=== PATIENT | male | born 1985 ===

== ENCOUNTER 2017-10-16 13:13 | Emergency (ER) | payer SELFPAY ==
[2017-10-16 13:23] VITALS: TEMP 98.7
[2017-10-16] MEDS ORDERED: Sodium Chloride 0.9% 1,000 ML IV ONE (13:25)
[2017-10-16] MEDS ORDERED: Sodium Chloride 0.9% 1,000 ML ONE (13:33)
[2017-10-16 13:39] LABS: BASO # 0.1 K/uL (0.0-0.2); BASO % 0.4 % (0.0-2.0); EOS # 0.1 K/uL (0.0-0.7); EOS % 0.9 % (0.0-4.0); HEMOGLOBIN 14.9 g/dL (12.0-18.0); LYMPH # 1.1 K/uL (1.0-4.3); LYMPH % 7.9 % (20.0-40.0); MEAN CELL VOLUME 86.4 fL (80.0-94.0); MEAN CORPUSCULAR HEMOGLOBIN 29.2 pg (27.0-31.0); MEAN CORPUSCULAR HGB CONC 33.7 g/dL (33.0-37.0); MEAN PLATELET VOLUME 8.3 fL (7.2-11.7); MONO # 0.2 K/uL (0.0-0.8); MONO % 1.3 % (0.0-10.0); NEUT # 12.9 K/uL (1.8-7.0); NEUT % 89.5 % (50.0-75.0); NRBC % 0.1 % (0.0-2.0); PLATELET COUNT 248 K/uL (130-400); RBC 5.12 Mil/uL (4.40-5.90); RED CELL DISTRIBUTION WIDTH 13.1 % (11.5-14.5); WHITE BLOOD COUNT 14.4 K/uL (4.8-10.8)
[2017-10-16 13:47] LABS: INR 1.1; PROTHROMBIN TIME 13.1 SECONDS (9.7-12.2)
[2017-10-16 13:50] LABS: ALB/GLOB RATIO 1.1 (1.0-2.1); ALBUMIN 4.2 g/dL (3.5-5.0); ALT/SGPT 37 U/L (21-72); AST/SGOT 30 U/L (17-59); BLOOD UREA NITROGEN 15 mg/dL (9-20); CALCIUM 8.7 mg/dl (8.6-10.4); GFR AFRICAN-AMERICAN > 60; GFR NON-AFRICAN AMERICAN > 60
[2017-10-16 14:01] LABS: CK-MB 1.23 ng/mL (0.0-3.38)
[2017-10-16 14:09] LABS: URINE BILIRUBIN NEGATIVE (NEGATIVE); URINE BLOOD NEGATIVE (NEGATIVE); URINE CLARITY Clear (Clear); URINE COLOR Yellow (YELLOW); URINE GLUCOSE (UA) NORMAL (Normal); URINE LEUKOCYTE ESTERASE NEG Leu/uL (Negative); URINE PROTEIN NEGATIVE (NEGATIVE); URINE UROBILINOGEN NORMAL mg/dL (0.2-1.0)
[2017-10-16 14:15] LABS: BANDS 3 % (0-2); EOSINOPHIL 1 % (0-4); LYMPHOCYTE 9 % (20-40); MONOCYTE 3 % (0-10); NEUTROPHIL 84 % (50-75); PLATELET ESTIMATE NORMAL (NORMAL); TOTAL CELLS COUNTED 100
--- NOTE | 2017-10-16 14:17 | RAD ---
PROCEDURE: CHEST RADIOGRAPH, 1 VIEW HISTORY: Syncope COMPARISON: None available. FINDINGS: LUNGS: No acute infiltrate bilaterally. PLEURA: No pneumothorax or pleural fluid seen. CARDIOVASCULAR: Normal. OSSEOUS STRUCTURES: No significant abnormalities. VISUALIZED UPPER ABDOMEN: Gas distends the gastric viscus in the left upper quadrant abdomen incidentally. OTHER FINDINGS: None. IMPRESSION: No definitive acute cardiopulmonary is appreciable.
--- NOTE | 2017-10-16 14:37 | CT ---
PROCEDURE: CT HEAD WITHOUT CONTRAST. HISTORY: Syncope vs. Seizure, hit head COMPARISON: None available. TECHNIQUE: Axial computed tomography images were obtained through the head/brain without intravenous contrast. Radiation dose: Total exam DLP = 837.24 mGy-cm. This CT exam was performed using one or more of the following dose reduction techniques: Automated exposure control, adjustment of the mA and/or kV according to patient size, and/or use of iterative reconstruction technique. FINDINGS: HEMORRHAGE: No intracranial hemorrhage. BRAIN: Normal castellanos-white matter differentiation and density are appreciated throughout the cerebrum and cerebellum with the brainstem appearing unremarkable as well. There is no mass effect. There is no suspicious extra-axial fluid collection and the midline brain anatomy appears diffusely unremarkable. VENTRICLES: Unremarkable. No hydrocephalus. CALVARIUM: Unremarkable. PARANASAL SINUSES: Unremarkable as visualized. No significant inflammatory changes. MASTOID AIR CELLS: Unremarkable as visualized. No inflammatory changes. OTHER FINDINGS: None. IMPRESSION: Unremarkable unenhanced CT of the Head.
[2017-10-16 14:44] LABS: BARBITURATES, UR NEGATIVE (NEGATIVE); BENZODIAZEPINES, UR NEGATIVE (NEGATIVE); OPIATES, UR NEGATIVE (NEGATIVE); PHENCYCLIDINE, UR NEGATIVE (NEGATIVE)
[2017-10-16 14:54] VITALS: O2SAT 98
[2017-10-16 15:35] LABS: ARTERIAL BLOOD GAS HEMOGLOBIN 14.3 g/dL (11.7-17.4); ARTERIAL BLOOD GAS O2 SAT 92.8 % (95-98)
--- NOTE | 2017-10-16 15:55 | C.PDOC ---
Time Seen by Provider: 10/16/17 13:17 Chief Complaint (Nursing): Syncope History Per: Patient, Other (Friends) Onset/Duration Of Symptoms: Sudden Onset (Just [employer]) Current Symptoms Are (Timing): Better Activity At Onset Of Symptoms: Sitting (eating) Seizure Or Post-ictal Symptoms: None. denies: Incontinent Of Urine, Incontinent Of Stool, Bit Tongue Fall Associated With With Symptoms: Yes, Positive Injury (Hit front of head) Severity: Moderate Additional History Per: Prior Records - Symptoms Of CVA Recent Aspirin Use: No Current Coumadin Use?: No Past Medical History Reviewed: Historical Data, Nursing Documentation, Vital Signs Vital Signs: Last Vital Signs Temp 98.7 F 10/16/17 13:19 Pulse 72 10/16/17 16:00 Resp 15 10/16/17 16:00 BP 106/53 L 10/16/17 16:00 Pulse Ox 98 10/16/17 16:00 - Medical History PMH: No Chronic Diseases Surgical History: No Surg Hx Family History: States: Unknown Family Hx - Social History Hx Tobacco Use: No Hx Alcohol Use: No Hx Substance Use: No - Immunization History Hx Tetanus Toxoid Vaccination: No Hx Influenza Vaccination: No Hx Pneumococcal Vaccination: No Review Of Systems Except As Marked, All Systems Reviewed And Found Negative. Constitutional: Negative for: Fever Cardiovascular: Negative for: Chest Pain Respiratory: Negative for: Shortness of Breath Gastrointestinal: Negative for: Vomiting, Abdominal Pain Musculoskeletal: Positive for: Back Pain. Negative for: Neck Pain Skin: Negative for: Rash Neurological: Positive for: Headache. Negative for: Weakness, Numbness Physical Exam - Physical Exam Appears: Non-toxic, No Acute Distress Skin: Normal Color, Warm, Dry Head: Other (Contusions on forehead) Eye(s): bilateral: PERRL, EOMI Neck: Normal ROM, No Midline Cervical Tenderness, No Step Off Deformity, Supple Chest: Symmetrical, No Deformity Cardiovascular: Rhythm Regular Respiratory: Normal Breath Sounds, No Accessory Muscle Use Gastrointestinal/Abdominal: Soft, No Tenderness Back: No CVA Tenderness Extremity: Normal ROM, No Pedal Edema, No Calf Tenderness Neurological/Psych: Oriented x3, Normal Speech, Normal Cognition, Normal Motor, Normal Sensation ED Course And Treatment - Laboratory Results Result Diagrams: 10/16/17 13:32 10/16/17 13:32 ECG: Interpreted By Me, Viewed By Me ECG Rhythm: Sinus Rhythm ECG Interpretation: No Acute Changes Rate From EC O2 Sat by Pulse Oximetry: 98 Pulse Ox Interpretation: Normal - Radiology CXR: Viewed By Me, Read By Radiologist CXR Interpretation: Yes: No Acute Disease, Heart Size (wnl) - CT Scan/US CT head Other Rad Studies (CT/US): Read By Radiologist, Radiology Report Reviewed CT/US Interpretation: IMPRESSION: Unremarkable unenhanced CT of the Head. Progress - Interventions Interventions:: Observation, Intravenous fluid - Medications Administered Oral: Acetaminophen - Data Reviewed Data Reviewed: Lab, Diagnostic imaging, EKG, Old records - Patient Status Patient status: Completely improved - Continuity of Care Discussed patient case with:: Patient, ED Nurse - Patient Plan Patient Plan: Discharge, F/U with PCP Medical Decision Making Medical Decision Making: PERC rule negative Disposition Counseled Patient/Family Regarding: Studies Performed, Diagnosis, Need For Followup - Disposition Referrals: [facility] [Outside] Disposition: HOME/ ROUTINE Disposition Time: 16:16 Condition: IMPROVED Additional Instructions: Follow up in the clinic for further evaluation and treatment. Return to the ER if you pass out again, develop chest pain, shortness of breath, weakness, vomiting, severe headache, worsening of symptoms or if you have any other concerns. Instructions: Syncope (Fainting) (DC) Forms: Gen Discharge Inst Tunisian Print Language: TELUGU - Clinical Impression Clinical Impression: Syncope
[2017-10-17 11:13] VITALS: BP 106/53; PULSE 72; RESP 15
--- NOTE | 2017-10-17 15:00 | CARD ---
APPROVED REPORT EKG Measurement Heart [id number] MD [id number] <Conclusion> Normal sinus rhythm Normal ECG
== END 2017-10-16 16:31 | disposition home or self-care (01) ==
LOC: EDBD 13:13 → C.ER 13:13
DX: R55 Syncope and collapse (principal)
CPT/HCPCS: 70450; 71045; 80053; 81001; 82375; 82948; 83735; 84484; 85025; 85610; 85730; 93005; 99285; G0480; J7040